=== PATIENT | male | born 1990 | race Caucasian/White ===

== ENCOUNTER 2021-05-21 15:30 | Emergency (ER) | payer MEDICAID ==
[~2021-05-21] VITALS: Ht 193 cm; Wt 81.8 kg
[~2021-05-21 15:30] MED LIST: BENZ1TAB70 PO; QUET300T2 PO; RISPC50 IM
[2021-05-21 17:47] VITALS: BP 111/70
[2021-05-21] MEDS ORDERED: QUEtiapine FUMARATE 100 MG TABLET PO ONE ×2 (18:15)
== END 2021-05-21 19:36 | disposition home or self-care (01) ==
LOC: EMS 16:27
DX: R44.0 Auditory hallucinations (principal); F31.9 Bipolar disorder, unspecified; F17.210 Nicotine dependence, cigarettes, uncomplicated
CPT/HCPCS: 99284; Z7502; Z7610

== ENCOUNTER 2022-11-24 04:19 | Emergency (ER) | payer MEDICAID ==
[~2022-11-24] VITALS: Ht 188 cm; Wt 92.0 kg
[2022-11-24 05:04] LABS: MEAN CORPUSCULAR HGB CONC 34.2 G/dL (31.0-37.0); RED CELL DISTRIBUTION WIDTH 12.8 % (11.5-14.5)
[2022-11-24 05:08] LABS: BASOPHILS % (AUTO) 0.9 % (0.0-2.0); EOSINOPHILS % (AUTO) 1.7 % (1.0-6.0); HEMOGLOBIN 15.4 g/dL (13.5-17.5); LYMPHOCYTES # (AUTO) 1.4 K/uL (1.0-4.8); LYMPHOCYTES % (AUTO) 14.2 % (22.0-44.0); MEAN CORPUSCULAR HEMOGLOBIN 29.7 pg (26.0-34.0); MEAN CORPUSCULAR VOLUME 87 fL (80-100); MONOCYTES # (AUTO) 0.5 K/uL (0.1-1.0); MONOCYTES % (AUTO) 5.6 % (2.0-9.0); NEUTROPHILS # (AUTO) 7.5 K/uL (1.8-7.7); NEUTROPHILS % (AUTO) 77.6 % (40.0-70.0); PLATELET COUNT (AUTO) 253 K/uL (150-450); RED BLOOD CELL COUNT(AUTO) 5.18 MIL/uL (4.50-5.90)
[2022-11-24 05:12] LABS: ANION GAP 8 mmol/L (8-16); CALCIUM, TOTAL 9.5 mg/dL (8.8-10.5); CARBON DIOXIDE 30 mmol/L (22-29); CHLORIDE 101 mmol/L (98-107); CREATININE 0.87 mg/dL (0.60-1.30); GLOMERULAR FILTR. RATE CALC > 60 mL/min (>60); GLUCOSE,RANDOM 119 mg/dL (70-110); POTASSIUM 3.7 mmol/L (3.5-5.1); SODIUM SERUM 139 mmol/L (136-145)
[2022-11-24 05:18] LABS: ALANINE AMINOTRANSFERASE 20 U/L (12-78); ALBUMIN 4.1 g/dL (3.4-5.0); ALKALINE PHOSPHATASE 80 U/L (46-116); ASPARTATE AMINOTRANSFERASE 16 U/L (15-37); BILIRUBIN,TOTAL 0.3 mg/dL (0.1-1.0); TOTAL PROTEIN, SERUM 7.2 g/dL (6.4-8.2)
[2022-11-24] MEDS ORDERED: ACETAMINOPHEN 500 MG TABLET PO ONE (05:30)
[2022-11-24] MEDS ORDERED: LURASIDONE HCL 40 MG TABLET PO ONE (06:00)
[2022-11-24 08:36] VITALS: BP 125/76
== END 2022-11-24 10:15 | disposition home or self-care (01) ==
LOC: EMS 04:20
DX: F25.9 Schizoaffective disorder, unspecified (principal); R51.9 Headache, unspecified; F69 Unspecified disorder of adult personality and behavior; F31.9 Bipolar disorder, unspecified; F17.210 Nicotine dependence, cigarettes, uncomplicated; Z98.890 Other specified postprocedural states
CPT/HCPCS: 99284; 80053; 85025; 36415; G0480

== ENCOUNTER 2022-12-24 21:31 | Emergency (ER) | payer MEDICAID ==
[~2022-12-24] VITALS: Ht 198.1 cm; Wt 80.0 kg
[2022-12-24 21:54] LABS: BASOPHILS % (AUTO) 0.9 % (0.0-2.0); EOSINOPHILS % (AUTO) 3.1 % (1.0-6.0); HEMATOCRIT 45.1 % (41-53); HEMOGLOBIN 14.9 g/dL (13.5-17.5); LYMPHOCYTES # (AUTO) 2.5 K/uL (1.0-4.8); MEAN CORPUSCULAR HEMOGLOBIN 29.3 pg (26.0-34.0); MEAN CORPUSCULAR HGB CONC 33.1 G/dL (31.0-37.0); MEAN CORPUSCULAR VOLUME 88 fL (80-100); MONOCYTES # (AUTO) 0.6 K/uL (0.1-1.0); MONOCYTES % (AUTO) 8.2 % (2.0-9.0); NEUTROPHILS # (AUTO) 4.4 K/uL (1.8-7.7); NEUTROPHILS % (AUTO) 55.8 % (40.0-70.0); PLATELET COUNT (AUTO) 250 K/uL (150-450)
[2022-12-24 22:01] LABS: ANION GAP 6 mmol/L (8-16); CALCIUM, TOTAL 9.9 mg/dL (8.8-10.5); CARBON DIOXIDE 30 mmol/L (22-29); CHLORIDE 102 mmol/L (98-107); CREATININE 0.92 mg/dL (0.60-1.30); GLOMERULAR FILTR. RATE CALC > 60 mL/min (>60); GLUCOSE,RANDOM 95 mg/dL (70-110); SODIUM SERUM 138 mmol/L (136-145)
[2022-12-24 22:06] LABS: ALANINE AMINOTRANSFERASE 15 U/L (12-78); ALBUMIN 3.9 g/dL (3.4-5.0); ALKALINE PHOSPHATASE 88 U/L (46-116); ASPARTATE AMINOTRANSFERASE 18 U/L (15-37); BILIRUBIN,TOTAL 0.2 mg/dL (0.1-1.0); TOTAL PROTEIN, SERUM 7.1 g/dL (6.4-8.2)
[2022-12-24 22:13] VITALS: BP 120/81
[2022-12-24] MEDS ORDERED: ACETAMINOPHEN 500 MG TABLET PO ONE (22:30)
[2022-12-24] MEDS ORDERED: RisperiDONE 1 MG TABLET PO ONE (22:30)
[2022-12-24 22:40] LABS: AMPHET/METH SCREEN,URINE NEGATIVE (NEGATIVE); BARBITURATE SCREEN, URINE NEGATIVE (NEGATIVE); BENZODIAZEPINES SCREEN,URINE NEGATIVE (NEGATIVE); CANNABINOID SCREEN,URINE NEGATIVE (NEGATIVE); COCAINE SCREEN,URINE NEGATIVE (NEGATIVE); METHADONE SCREEN, URINE NEGATIVE (NEGATIVE); OPIATE SCREEN,URINE NEGATIVE (NEGATIVE); PHENCYCLIDINE SCREEN,URINE NEGATIVE (NEGATIVE)
== END 2022-12-24 23:01 | disposition home or self-care (01) ==
LOC: EMS 21:35
DX: F20.9 Schizophrenia, unspecified (principal); F31.9 Bipolar disorder, unspecified; F17.210 Nicotine dependence, cigarettes, uncomplicated; Z98.890 Other specified postprocedural states
CPT/HCPCS: 99284; 80053; 85025; 36415; 80307; G0480

== ENCOUNTER 2022-12-26 22:24 | Inpatient (IN) | payer MEDICAID ==
[~2022-12-26] VITALS: Ht 203.2 cm; Wt 85.1 kg
[2022-12-26 23:00] LABS: BASOPHILS % (AUTO) 0.7 % (0.0-2.0); EOSINOPHILS % (AUTO) 3.2 % (1.0-6.0); HEMATOCRIT 44.3 % (41-53); HEMOGLOBIN 14.9 g/dL (13.5-17.5); LYMPHOCYTES # (AUTO) 2.3 K/uL (1.0-4.8); LYMPHOCYTES % (AUTO) 22.9 % (22.0-44.0); MEAN CORPUSCULAR HEMOGLOBIN 29.6 pg (26.0-34.0); MEAN CORPUSCULAR HGB CONC 33.5 G/dL (31.0-37.0); MEAN CORPUSCULAR VOLUME 88 fL (80-100); MONOCYTES % (AUTO) 10.6 % (2.0-9.0); NEUTROPHILS # (AUTO) 6.2 K/uL (1.8-7.7); NEUTROPHILS % (AUTO) 62.6 % (40.0-70.0); PLATELET COUNT (AUTO) 258 K/uL (150-450); RED BLOOD CELL COUNT(AUTO) 5.02 MIL/uL (4.50-5.90); RED CELL DISTRIBUTION WIDTH 13.3 % (11.5-14.5)
[2022-12-26] MEDS ORDERED: OLANZapine 5 MG TABLET PO ONE (23:00)
[2022-12-26 23:14] LABS: ANION GAP 4 mmol/L (8-16); CALCIUM, TOTAL 9.5 mg/dL (8.8-10.5); CARBON DIOXIDE 30 mmol/L (22-29); CHLORIDE 102 mmol/L (98-107); GLOMERULAR FILTR. RATE CALC > 60 mL/min (>60); GLUCOSE,RANDOM 78 mg/dL (70-110); POTASSIUM 3.9 mmol/L (3.5-5.1); SODIUM SERUM 136 mmol/L (136-145)
[2022-12-26] MEDS ORDERED: ZOLPIDEM TARTRATE 10 MG TABLET PO PRN (23:15)
[2022-12-26] MEDS ORDERED: QUEtiapine FUMARATE 100 MG TABLET PO PRN (23:15)
[2022-12-26] MEDS ORDERED: LORazepam 2 MG TABLET PO PRN (23:15)
[2022-12-26 23:19] LABS: ALANINE AMINOTRANSFERASE 27 U/L (12-78); ALBUMIN 3.8 g/dL (3.4-5.0); ALKALINE PHOSPHATASE 90 U/L (46-116); ASPARTATE AMINOTRANSFERASE 29 U/L (15-37); BILIRUBIN,TOTAL 0.3 mg/dL (0.1-1.0)
[2022-12-27 00:01] LABS: COVID AG,FIA SOURCE NASOPHARYNGEAL
[2022-12-27 01:54] VITALS: BP 110/67
[2022-12-27 02:14] VITALS: BP 110/67
[2022-12-27 02:21] VITALS: BP 110/67
[2022-12-27] MEDS ORDERED: TUBERCULIN, PURIFIED PROTEIN DERIVATIVE 5 TU/0.1 ML SYRINGE ID ONE (11:30)
[2022-12-27] MEDS ORDERED: MAGNESIUM HYDROXIDE SUSPENSION 30 ML UDCUP PO PRN (11:30)
[2022-12-27] MEDS ORDERED: ACETAMINOPHEN 325 MG TABLET PO PRN (11:30)
[2022-12-27] MEDS ORDERED: MAG HYDROX/AL HYDROX/SIMETH ES 30 ML SUSPENSION UDCUP PO PRN (11:30)
[2022-12-27] MEDS ORDERED: LOPERAMIDE HCL 2 MG CAPSULE PO PRN (11:30)
[2022-12-27] MEDS ORDERED: HydrOXYzine PAMOATE 50 MG CAPSULE PO PRN (11:30)
[2022-12-27] MEDS ORDERED: PROMETHAZINE HCL 25 MG TABLET PO PRN (11:30)
[2022-12-27] MEDS ORDERED: GuaiFENesin/D-METHORPHAN [SUGAR-FREE] 200-20MG/10 ML SYRUP UDCUP PO PRN (11:30)
[2022-12-27 11:52] VITALS: BP 112/60
[2022-12-27] MEDS: LURASIDONE HCL 40 MG TABLET PO SCH (16:47)
[2022-12-27] MEDS: THIAMINE 100 MG TABLET PO SCH (16:47)
[2022-12-27 20:05] VITALS: BP 121/77
[2022-12-27] MEDS: MELATONIN 5 MG TABLET PO SCH (20:29)
[2022-12-27] MEDS: DIVALPROEX SODIUM 500 MG ER TABLET PO SCH (20:29)
[2022-12-28 07:32] LABS: CHOL/HDL RATIO 4.9 (4.2-7.3); FREE T4 (FREE THYROXINE) 1.09 ng/dL (0.76-1.46); THYROID STIMULATING HORMONE 0.28 uIU/mL (0.36-3.74)
[2022-12-28] MEDS: OMEGA-3/DHA/EPA/FISH OIL 1,000 MG CAPSULE PO SCH (08:50)
[2022-12-28] MEDS: FOLIC ACID 1 MG TABLET PO SCH (08:50)
[2022-12-28] MEDS: THIAMINE 100 MG TABLET PO SCH ×2 (08:50→16:30)
[2022-12-28] MEDS: NALTREXONE HCL 50 MG TABLET PO SCH (08:51)
[2022-12-28] MEDS: MULTIVITAMINS WITH MINERALS, THERAPEUTIC TABLET PO SCH (08:51)
[2022-12-28 10:11] VITALS: BP 101/67
[2022-12-28] MEDS: LURASIDONE HCL 40 MG TABLET PO SCH ×2 (16:30→17:42)
[2022-12-28] MEDS: MELATONIN 5 MG TABLET PO SCH (20:36)
[2022-12-28] MEDS: DIVALPROEX SODIUM 500 MG ER TABLET PO SCH (20:36)
[2022-12-28 21:58] VITALS: BP 103/67
[2022-12-29] MEDS: OMEGA-3/DHA/EPA/FISH OIL 1,000 MG CAPSULE PO SCH (09:04)
[2022-12-29] MEDS: FOLIC ACID 1 MG TABLET PO SCH (09:04)
[2022-12-29] MEDS: THIAMINE 100 MG TABLET PO SCH ×2 (09:04→16:42)
[2022-12-29] MEDS: NALTREXONE HCL 50 MG TABLET PO SCH (09:05)
[2022-12-29] MEDS: MULTIVITAMINS WITH MINERALS, THERAPEUTIC TABLET PO SCH (09:05)
[2022-12-29] MEDS ORDERED: OMEG-135 PO (15:16)
[2022-12-29] MEDS ORDERED: NALT50TA PO (15:16)
[2022-12-29] MEDS ORDERED: MELA5TAB40 PO (15:16)
[2022-12-29] MEDS ORDERED: DIVA500T69 PO (15:16)
[2022-12-29] MEDS ORDERED: LURA60TA4 PO (15:16)
[2022-12-29] MEDS: LURASIDONE HCL 60 MG TABLET PO SCH (17:26)
[2022-12-29] MEDS: MELATONIN 5 MG TABLET PO SCH (20:30)
[2022-12-29] MEDS: DIVALPROEX SODIUM 500 MG ER TABLET PO SCH (20:30)
[2022-12-30] MEDS ORDERED: DIVA500T53 PO (04:14)
[2022-12-30] MEDS ORDERED: LURA60TA PO (04:17)
[2022-12-30] MEDS ORDERED: NALT50TA6 PO (04:18)
[2022-12-30] MEDS ORDERED: MELA5TAB40 PO (04:18)
[2022-12-30] MEDS ORDERED: OMEG-135 PO (04:19)
[2022-12-30] MEDS: FOLIC ACID 1 MG TABLET PO SCH (08:27)
[2022-12-30] MEDS: NALTREXONE HCL 50 MG TABLET PO SCH (08:27)
[2022-12-30] MEDS: THIAMINE 100 MG TABLET PO SCH ×2 (08:27→17:00)
[2022-12-30] MEDS: MULTIVITAMINS WITH MINERALS, THERAPEUTIC TABLET PO SCH (08:27)
[2022-12-30] MEDS: OMEGA-3/DHA/EPA/FISH OIL 1,000 MG CAPSULE PO SCH (08:28)
[2022-12-30 09:47] VITALS: BP 131/87
[2022-12-30] MEDS: LURASIDONE HCL 60 MG TABLET PO SCH (17:30)
[2022-12-31] MEDS ORDERED: BACI28OI9 TP (21:28)
[2022-12-31] MEDS ORDERED: DIVA500T69 PO (21:31)
[2022-12-31] MEDS ORDERED: LURA60TA4 PO (21:31)
== END 2022-12-30 17:50 | disposition home or self-care (01) | DRG 750 ==
LOC: EMS 22:26 → 3EC 12-27 00:31
PROVIDERS: ADMIT Psychiatry & Neurology Psychiatry; ATTEND Psychiatry & Neurology Psychiatry
DX: F25.9 Schizoaffective disorder, unspecified (principal); G93.41 Metabolic encephalopathy; F70 Mild intellectual disabilities; Z91.148 Patient's other noncompliance with medication regimen for other reason; E78.5 Hyperlipidemia, unspecified; Z20.822 Contact with and (suspected) exposure to COVID-19; F15.10 Other stimulant abuse, uncomplicated; F31.9 Bipolar disorder, unspecified; F17.210 Nicotine dependence, cigarettes, uncomplicated; J44.9 Chronic obstructive pulmonary disease, unspecified; Z88.0 Allergy status to penicillin; Z79.899 Other long term (current) drug therapy
CPT/HCPCS: 80053; 80061; 80164; 83036; 84439; 84443; 85025; 86592; 99285; G0480; Q9967

== ENCOUNTER 2022-12-31 19:18 | Emergency (ER) | payer MEDICAID ==
[~2022-12-31] VITALS: Ht 185.4 cm; Wt 81.8 kg
[~2022-12-31 19:18] MED LIST changes: +DIVA500T53 PO; +DIVA500T69 PO; +LURA60TA PO; +LURA60TA4 PO; +MELA5TAB40 PO; +NALT50TA PO; +NALT50TA6 PO; +OMEG-135 PO
[2022-12-31] MEDS ORDERED: BACI28OI9 TP (21:28)
[2022-12-31] MEDS ORDERED: LURASIDONE HCL 40 MG TABLET PO ONE (21:30)
[2022-12-31] MEDS ORDERED: LURA60TA4 PO (21:31)
[2022-12-31] MEDS ORDERED: DIVA500T69 PO (21:31)
[2022-12-31 22:00] VITALS: BP 124/71
== END 2022-12-31 22:08 | disposition home or self-care (01) ==
LOC: EMS 19:47
DX: F25.9 Schizoaffective disorder, unspecified (principal); B35.1 Tinea unguium; L97.519 Non-pressure chronic ulcer of other part of right foot with unspecified severity; L60.2 Onychogryphosis; F41.9 Anxiety disorder, unspecified; F31.9 Bipolar disorder, unspecified; E78.00 Pure hypercholesterolemia, unspecified; F17.210 Nicotine dependence, cigarettes, uncomplicated; F12.90 Cannabis use, unspecified, uncomplicated; F15.90 Other stimulant use, unspecified, uncomplicated; Z98.890 Other specified postprocedural states
CPT/HCPCS: 99283

== ENCOUNTER 2023-01-10 00:04 | Emergency (ER) | payer MEDICAID ==
[~2023-01-10] VITALS: Ht 198.1 cm; Wt 82.0 kg
[~2023-01-10 00:04] MED LIST changes: +BACI28OI9 TP; -BENZ1TAB70 PO; -DIVA500T53 PO; -LURA60TA PO; -NALT50TA6 PO; -QUET300T2 PO; -RISPC50 IM
[2023-01-10 00:33] LABS: BASOPHILS % (AUTO) 1.3 % (0.0-2.0); EOSINOPHILS % (AUTO) 5.4 % (1.0-6.0); HEMATOCRIT 43.4 % (41-53); HEMOGLOBIN 14.9 g/dL (13.5-17.5); LYMPHOCYTES % (AUTO) 41.8 % (22.0-44.0); MEAN CORPUSCULAR HEMOGLOBIN 30.3 pg (26.0-34.0); MEAN CORPUSCULAR HGB CONC 34.3 G/dL (31.0-37.0); MEAN CORPUSCULAR VOLUME 89 fL (80-100); MONOCYTES # (AUTO) 0.8 K/uL (0.1-1.0); MONOCYTES % (AUTO) 10.5 % (2.0-9.0); NEUTROPHILS # (AUTO) 2.9 K/uL (1.8-7.7); PLATELET COUNT (AUTO) 240 K/uL (150-450); RED CELL DISTRIBUTION WIDTH 13.5 % (11.5-14.5)
[2023-01-10 00:45] LABS: ANION GAP 7 mmol/L (8-16); CALCIUM, TOTAL 9.3 mg/dL (8.8-10.5); CARBON DIOXIDE 28 mmol/L (22-29); CHLORIDE 104 mmol/L (98-107); CREATININE 1.13 mg/dL (0.60-1.30); GLOMERULAR FILTR. RATE CALC > 60 mL/min (>60); GLUCOSE,RANDOM 113 mg/dL (70-110); POTASSIUM 3.4 mmol/L (3.5-5.1); SODIUM SERUM 139 mmol/L (136-145)
[2023-01-10 00:51] LABS: ALANINE AMINOTRANSFERASE 16 U/L (12-78); ALBUMIN 3.8 g/dL (3.4-5.0); ALKALINE PHOSPHATASE 76 U/L (46-116); ASPARTATE AMINOTRANSFERASE 16 U/L (15-37); BILIRUBIN,TOTAL 0.4 mg/dL (0.1-1.0); TOTAL PROTEIN, SERUM 6.9 g/dL (6.4-8.2)
[2023-01-10 00:57] LABS: VALPROIC ACID < 3 mcg/mL (50-100)
[2023-01-10 03:00] VITALS: BP 120/70; PULSE 73; RESP 16; TEMP 98.3
== END 2023-01-10 03:30 | disposition home or self-care (01) ==
LOC: EMS 00:05
DX: R10.9 Unspecified abdominal pain (principal); F41.9 Anxiety disorder, unspecified; F31.9 Bipolar disorder, unspecified; E78.00 Pure hypercholesterolemia, unspecified; F20.9 Schizophrenia, unspecified; F17.210 Nicotine dependence, cigarettes, uncomplicated; F12.90 Cannabis use, unspecified, uncomplicated; F15.90 Other stimulant use, unspecified, uncomplicated; Z98.890 Other specified postprocedural states; Z88.0 Allergy status to penicillin
CPT/HCPCS: 99284; 80053; 80164; 85025; 36415; 74018; G0480

== ENCOUNTER 2023-08-13 09:27 | Emergency (ER) | payer MEDICAID ==
[~2023-08-13 09:27] MED LIST changes: +BACI28.410 TP; -BACI28OI9 TP
== END 2023-08-13 10:37 | disposition left against medical advice (07) ==
LOC: EMS 09:27
DX: Z53.21 Procedure and treatment not carried out due to patient leaving prior to being seen by health care provider (principal)

== ENCOUNTER 2024-06-17 22:06 | Emergency (ER) | payer MEDICAID ==
[~2024-06-17] VITALS: Ht 193 cm; Wt 77.3 kg
[~2024-06-17 22:06] MED LIST changes: -NALT50TA PO; +NALT50TA6 PO
[2024-06-17 22:27] VITALS: TEMP 99.3
[2024-06-18] MEDS ORDERED: ACET-66 PO (01:07)
[2024-06-18 01:20] VITALS: BP 114/73; PULSE 72; RESP 14; O2SAT 100
== END 2024-06-18 01:48 | disposition home or self-care (01) ==
LOC: EMS 22:06
DX: F25.9 Schizoaffective disorder, unspecified (principal); M79.672 Pain in left foot; M79.671 Pain in right foot; F31.9 Bipolar disorder, unspecified; E78.00 Pure hypercholesterolemia, unspecified; F12.90 Cannabis use, unspecified, uncomplicated; F15.90 Other stimulant use, unspecified, uncomplicated; F17.210 Nicotine dependence, cigarettes, uncomplicated; Z88.0 Allergy status to penicillin; Z59.00 Homelessness unspecified; Z98.890 Other specified postprocedural states
CPT/HCPCS: 99283; Z7502

== ENCOUNTER 2024-09-23 12:42 | Inpatient (IN) | payer MEDICAID ==
[~2024-09-23] VITALS: Ht 188 cm; Wt 90.9 kg
[~2024-09-23 12:42] MED LIST changes: +ACET-66 PO
[2024-09-23] MEDS: LORazepam 2 MG/ML VIAL IM ONE (13:40)
[2024-09-23] MEDS: DiphenhydrAMINE HCL 50 MG/ML VIAL IM ONE (13:40)
[2024-09-23] MEDS: HALOPERIDOL LACTATE 5 MG/ML VIAL IM ONE (13:40)
[2024-09-23 15:54] LABS: ANION GAP 9 mmol/L (8-16); CALCIUM, TOTAL 9.4 mg/dL (8.8-10.5); CARBON DIOXIDE 28 mmol/L (22-29); CHLORIDE 105 mmol/L (98-107); CREATININE 1.03 mg/dL (0.60-1.30); GLOMERULAR FILTR. RATE CALC > 60 mL/min (>60); GLUCOSE,RANDOM 104 mg/dL (70-110); POTASSIUM 3.4 mmol/L (3.5-5.1); SODIUM SERUM 142 mmol/L (136-145); UREA NITROGEN, BLOOD 14 mg/dL (7-18)
[2024-09-23 15:56] LABS: BASOPHILS % (AUTO) 0.4 % (0.0-2.0); EOSINOPHILS % (AUTO) 0.9 % (1.0-6.0); HEMATOCRIT 42.7 % (41-53); LYMPHOCYTES # (AUTO) 2.1 K/uL (1.0-4.8); LYMPHOCYTES % (AUTO) 32.6 % (22.0-44.0); MEAN CORPUSCULAR HGB CONC 32.8 G/dL (31.0-37.0); MEAN CORPUSCULAR VOLUME 88 fL (80-100); MONOCYTES # (AUTO) 0.6 K/uL (0.1-1.0); MONOCYTES % (AUTO) 8.8 % (2.0-9.0); NEUTROPHILS # (AUTO) 3.7 K/uL (1.8-7.7); NEUTROPHILS % (AUTO) 57.3 % (40.0-70.0); PLATELET COUNT (AUTO) 225 K/uL (150-450); RED BLOOD CELL COUNT(AUTO) 4.84 MIL/uL (4.50-5.90); RED CELL DISTRIBUTION WIDTH 14.1 % (11.5-14.5); WHITE BLOOD COUNT (AUTO) 6.4 K/uL (4.5-11.0)
[2024-09-23 15:58] LABS: ALCOHOL, BLOOD (SERUM) < 3 mg/dL (0-10)
[2024-09-23] MEDS ORDERED: ZOLPIDEM TARTRATE 10 MG TABLET PO PRN (16:00)
[2024-09-23 17:36] LABS: COVID AG,FIA SOURCE NASAL SWAB
[2024-09-23 17:59] LABS: SARS-COV2 (COVID) ANTIGEN,FIA Negative (Negative)
[2024-09-23] MEDS: POTASSIUM CHLORIDE 20 MEQ ER TABLET PO ONE (18:11)
[2024-09-23] MEDS: DIVALPROEX SODIUM 500 MG ER TABLET PO SCH (21:47)
[2024-09-23] MEDS: QUEtiapine FUMARATE 200 MG TABLET PO SCH (21:47)
[2024-09-23] MEDS: MELATONIN 5 MG TABLET PO SCH (21:47)
[2024-09-24] MEDS: NALTREXONE HCL 50 MG TABLET PO SCH (08:46)
[2024-09-24] MEDS ORDERED: NALTREXONE HCL 50 MG TABLET PO SCH (09:00)
[2024-09-24] MEDS ORDERED: MAG HYDROX/ALUMINUM HYD/SIMETH ES 30 ML SUSPENSION UDCUP PO PRN (10:30)
[2024-09-24] MEDS ORDERED: PROMETHAZINE HCL 25 MG TABLET PO PRN (10:30)
[2024-09-24] MEDS ORDERED: TUBERCULIN, PURIFIED PROTEIN DERIVATIVE 5 TU/0.1 ML SYRINGE ID ONE (10:30)
[2024-09-24] MEDS ORDERED: GuaiFENesin/D-METHORPHAN [SUGAR-FREE] 200-20MG/10 ML SYRUP UDCUP PO PRN (10:30)
[2024-09-24] MEDS ORDERED: LOPERAMIDE HCL 2 MG CAPSULE PO PRN (10:30)
[2024-09-24] MEDS ORDERED: MAGNESIUM HYDROXIDE SUSPENSION 30 ML UDCUP PO PRN (10:30)
[2024-09-24] MEDS: THIAMINE 100 MG TABLET PO SCH (16:48)
[2024-09-24 21:31] VITALS: RESP 17
[2024-09-25] MEDS: MULTIVITAMINS WITH MINERALS, THERAPEUTIC TABLET PO SCH (08:53)
[2024-09-25] MEDS: FOLIC ACID 1 MG TABLET PO SCH (08:53)
[2024-09-25 10:40] VITALS: BP 103/60; PULSE 71; RESP 18; TEMP 97.8; O2SAT 97
[2024-09-25] MEDS: APIXABAN 5 MG TABLET PO SCH (19:14)
[2024-09-25 20:09] VITALS: BP 115/63; PULSE 73; RESP 18; TEMP 98.2; O2SAT 96
[2024-09-26 09:56] VITALS: BP 106/77; PULSE 99; RESP 19; TEMP 98; O2SAT 97
[2024-09-26 11:13] LABS: FREE T4 (FREE THYROXINE) 1.02 ng/dL (0.76-1.46); THYROID STIMULATING HORMONE 0.07 uIU/mL (0.36-3.74)
[2024-09-26] MEDS: QUEtiapine FUMARATE 300 MG TABLET PO SCH (20:55)
[2024-09-26 22:00] VITALS: BP 114/66; PULSE 84; RESP 18; TEMP 97; O2SAT 98
[2024-09-27 08:49] LABS: POTASSIUM 4.3 mmol/L (3.5-5.1)
[2024-09-27 11:29] VITALS: BP 110/65; PULSE 71; RESP 18; TEMP 98.3; O2SAT 98
[2024-09-27] MEDS: OLANZapine 5 MG RAPDIS TABLET PO PRN (12:46)
[2024-09-27] MEDS: LORazepam 2 MG TABLET PO PRN (12:46)
[2024-09-27 21:58] VITALS: RESP 18
[2024-09-28 10:14] VITALS: BP 104/60; PULSE 67; RESP 18; TEMP 97.7; O2SAT 100
[2024-09-28] MEDS: HydrOXYzine PAMOATE 50 MG CAPSULE PO PRN (13:20)
[2024-09-28 20:05] VITALS: BP 109/74; PULSE 86; RESP 18; TEMP 98; O2SAT 98
[2024-09-29 09:43] VITALS: BP 101/57; PULSE 80; RESP 18; TEMP 97.8; O2SAT 98
[2024-09-29 21:19] VITALS: RESP 18
[2024-09-30 09:21] VITALS: RESP 18
[2024-09-30 20:30] VITALS: BP 102/62; PULSE 89; RESP 19; TEMP 97.8; O2SAT 98
[2024-10-01 12:36] VITALS: BP 100/62; PULSE 78; RESP 19; TEMP 96.8; O2SAT 99
[2024-10-01 20:03] VITALS: RESP 18
[2024-10-01] MEDS: QUEtiapine FUMARATE 200 MG TABLET PO SCH (21:03)
[2024-10-02 10:18] VITALS: BP 111/68; PULSE 81; RESP 18; TEMP 97.3; O2SAT 98
[2024-10-02] MEDS: ACETAMINOPHEN 325 MG TABLET PO PRN (15:43)
[2024-10-02 20:16] VITALS: RESP 18
[2024-10-02] MEDS ORDERED: QUET200T30 PO (22:43)
[2024-10-02] MEDS ORDERED: DIVA-153 PO (22:43)
[2024-10-02] MEDS ORDERED: NALT50TA33 PO (22:43)
[2024-10-03 12:35] VITALS: BP 118/70; PULSE 71; RESP 16; TEMP 97.2; O2SAT 100
== END 2024-10-03 14:18 | disposition home or self-care (01) | DRG 750 ==
LOC: EMS 12:42 → 3EC 22:48
PROVIDERS: ADMIT Psychiatry & Neurology Psychiatry; ATTEND Psychiatry & Neurology Psychiatry
PROC: GZHZZZZ Group Psychotherapy (ICD-10-PCS; principal; 2024-09-24)
PROC: GZ56ZZZ Individual Psychotherapy, Supportive (ICD-10-PCS; 2024-09-24)
PROC: GZ58ZZZ Individual Psychotherapy, Cognitive-Behavioral (ICD-10-PCS; 2024-09-24)
DX: F20.0 Paranoid schizophrenia (principal); Z91.148 Patient's other noncompliance with medication regimen for other reason; E78.00 Pure hypercholesterolemia, unspecified; Z20.822 Contact with and (suspected) exposure to COVID-19; E87.6 Hypokalemia; G47.00 Insomnia, unspecified; K59.00 Constipation, unspecified; F17.200 Nicotine dependence, unspecified, uncomplicated; J44.9 Chronic obstructive pulmonary disease, unspecified; Z86.718 Personal history of other venous thrombosis and embolism; Z63.9 Problem related to primary support group, unspecified; Z55.9 Problems related to education and literacy, unspecified; Z59.9 Problem related to housing and economic circumstances, unspecified; Z88.0 Allergy status to penicillin; Z79.899 Other long term (current) drug therapy; Z65.3 Problems related to other legal circumstances
CPT/HCPCS: 80048; 80061; 80164; 83036; 84132; 84439; 84443; 85025; 86592; 96372; 99291; G0480; J1200; J1630; J2060

== ENCOUNTER 2024-11-16 21:00 | Emergency (ER) | payer MEDICAID ==
[~2024-11-16] VITALS: Ht 195.6 cm; Wt 90.0 kg
[~2024-11-16 21:00] MED LIST changes: -ACET-66 PO; -BACI28.410 TP; +DIVA-153 PO; -LURA60TA4 PO; +NALT50TA33 PO; -OMEG-135 PO; +QUET200T30 PO
[2024-11-16 21:04] VITALS: BP 130/62; PULSE 64; RESP 18; TEMP 98.6; O2SAT 98
[2024-11-16 21:45] LABS: COVID AG,FIA SOURCE NASAL SWAB
[2024-11-16 22:13] LABS: INFLUENZA TYPE A NEGATIVE FOR TYPE A (NEGATIVE); INFLUENZA TYPE B NEGATIVE FOR TYPE B (NEGATIVE); SARS-COV2 (COVID) ANTIGEN,FIA Negative (Negative)
== END 2024-11-16 22:36 | disposition left against medical advice (07) ==
LOC: EMS 21:01
DX: J11.1 Influenza due to unidentified influenza virus with other respiratory manifestations (principal); R06.02 Shortness of breath; Z53.21 Procedure and treatment not carried out due to patient leaving prior to being seen by health care provider; Z20.822 Contact with and (suspected) exposure to COVID-19
CPT/HCPCS: 87804